=== PATIENT | male | born 1990 | race Caucasian/White ===

== ENCOUNTER 2023-09-18 22:15 | Emergency (ER) | payer OTHER ==
[~2023-09-18] VITALS: Ht 165.1 cm; Wt 81.6 kg
[2023-09-18 23:14] VITALS: BP 129/89; PULSE 76; RESP 16; TEMP 96; O2SAT 98
[2023-09-18 23:48] VITALS: O2SAT 98
[2023-09-19] MEDS ORDERED: KETOROLAC 30 MG/ML VIAL IM ONE (01:55)
[2023-09-19] MEDS ORDERED: NAPR-54 PO (01:56)
[2023-09-19] MEDS ORDERED: KETOROLAC 60 MG/2 ML VIAL IM ONE (01:58)
[2023-09-19] MEDS ORDERED: CIPR500T4 PO (02:36)
== END 2023-09-19 02:41 | disposition home or self-care (01) ==
LOC: MED 22:15
DX: H60.92 Unspecified otitis externa, left ear (principal); Z79.899 Other long term (current) drug therapy
CPT/HCPCS: 96372; 99283; J1885